=== PATIENT | male | born 1940 | race Caucasian/White ===

== ENCOUNTER → 2018-08-29 | Outpatient (CLI) | payer OTHER | END | disposition home or self-care (01) | LOC: CIMAGING 09:08 | PROVIDERS: ATTEND Internal Medicine | DX: R06.00 Dyspnea, unspecified (principal); R91.8 Other nonspecific abnormal finding of lung field; Z87.891 Personal history of nicotine dependence; I10 Essential (primary) hypertension; E78.2 Mixed hyperlipidemia; E04.1 Nontoxic single thyroid nodule; I25.10 Atherosclerotic heart disease of native coronary artery without angina pectoris | CPT/HCPCS: 71250-PO ==

== ENCOUNTER → 2018-09-06 | Outpatient (CLI) | payer OTHER | LOC: CIMAGING 10:09 | PROVIDERS: ATTEND Internal Medicine | DX: E04.1 Nontoxic single thyroid nodule (principal) | CPT/HCPCS: 76536-PO ==

== ENCOUNTER → 2018-09-13 | Outpatient (CLI) | payer OTHER ==
[~2018-09-13] MED LIST: LIDOCAINE 1% 300 MG/30 ML SDV ONE
== END ==
LOC: FIMAGING 10:25
PROVIDERS: ATTEND Internal Medicine
PROC: 0G9H3ZX Drainage of Right Thyroid Gland Lobe, Percutaneous Approach, Diagnostic (ICD-10-PCS; principal; 2018-09-13)
DX: E04.1 Nontoxic single thyroid nodule (principal)

== ENCOUNTER 2018-10-02 09:38 | Day surgery (SDC) | payer OTHER ==
[2018-10-02] MEDS ORDERED: FAMOTIDINE 20 MG TAB PO ONE (09:41)
[2018-10-02] MEDS ORDERED: diphenhydrAMINE 25 MG CAP PO ONE ×2 (09:41→09:58)
[2018-10-02] MEDS ORDERED: NS 1,000 ML IV ONE (09:41)
[2018-10-02] MEDS ORDERED: ASPIRIN EC 325 MG TAB PO ONE ×2 (09:41→09:58)
[2018-10-02] MEDS ORDERED: DIAZEPAM 5 MG TAB PO ONE (09:41)
[2018-10-02] MEDS ORDERED: FAMOTIDINE 20 MG TAB ONE (09:58)
[2018-10-02] MEDS ORDERED: DIAZEPAM 5 MG TAB ONE (09:59)
[2018-10-02 10:21] LABS: PLATELET COUNT 239 10^3/uL (150-400)
[2018-10-02 10:33] LABS: INR 0.99 (0.83-1.16); PROTIME(PATIENT) 13.3 SEC (12.0-15.0)
[2018-10-02] MEDS ORDERED: LIDOCAINE 1% 300 MG/30 ML SDV ONE (11:24)
[2018-10-02] MEDS ORDERED: MIDAZOLAM 2 MG/2 ML VIAL ONE (11:25)
[2018-10-02] MEDS ORDERED: VERAPAMIL 5 MG/2 ML VIAL ONE (11:25)
[2018-10-02] MEDS ORDERED: HEPARIN 10,000 UNIT/10 ML MDV (1,000 UNIT/ML) ONE (11:25)
[2018-10-02] MEDS ORDERED: fentaNYL 100 MCG/2 ML INJ ONE (11:25)
[2018-10-02] MEDS ORDERED: IOHEXOL 350mgI/ML (OMNIPAQUE) 150 ML BTL IV ONE (11:25)
[2018-10-02] MEDS ORDERED: MAGNESIUM SULF 1 GM/DEXTROSE 100 ML IV ONE (11:30)
--- NOTE | 2018-10-02 12:20 | PDDXCAT ---
Diagnostic Cath Note - . Date: 10/02/18 Train Clerk: Lance Indication: other (Symptoms of exertional dyspnea, [place] [employer] functional class 3 with an associated intermediate risk stress myocardial perfusion imaging study.) - Procedure Access: right wrist Procedure: left heart catheterization, coronary angiography, left ventriculogram - Materials Left Heart Cath size: 5F Left Heart Cath materials: JL3.5, JR4.0, pigtail - Findings-Left Heart Catheterization LM: Large caliber vessel. Appropriate bifurcation into the left anterior descending and circumflex distributions. Angiographically free of disease. LAD: Large caliber transapical vessel with a single diagonal. Luminal irregularities with no obstructive lesions. LCX: Moderate caliber vessel. 3 obtuse marginal branches. Luminal irregularities with no obstructive lesions. RCA: Dominant. The PDA and a small posterolateral cascade are identified. Luminal irregularities with no obstructive lesions. LVEF: 60%. Normal wall motion. Wall motion: Normal. Complications: None. Estimated blood loss: <50ml Closure method: TR Band Assessment: Angiographically near normal coronary arteries. Preserved left ventricular systolic function. Likely false-positive stress test. Dyspnea not explained by findings on this study. Plan: Patient will be assessed for alternate etiologies to his symptoms.
[2018-10-02] MEDS ORDERED: ONDANSETRON 4 MG/2 ML VIAL IVP PRN (12:21)
[2018-10-02] MEDS ORDERED: ATROPINE SULFATE 1 MG/10 ML SYR IVP PRN (12:21)
--- NOTE | 2018-10-02 15:52 | CPEKG ---
Test Reason : OPEN Blood Pressure : / mmHG Vent. Rate : 066 BPM Atrial Rate : 066 BPM P-R Int : 231 ms QRS Dur : 091 ms QT Int : 391 ms P-R-T Axes : 079 055 049 degrees QTc Int : 410 ms Sinus rhythm Prolonged OR interval Confirmed by Jose Roberto Russell ([id number]) on 10/02/2018 3:51:25 PM Referred By: Lucas Lucas Confirmed By:Jose Roberto Russell
== END 2018-10-02 15:40 | disposition home or self-care (01) ==
LOC: FCATH 09:38
PROVIDERS: ATTEND Internal Medicine Cardiovascular Disease
PROC: 4A023N7 Measurement of Cardiac Sampling and Pressure, Left Heart, Percutaneous Approach (ICD-10-PCS; principal; 2018-10-02)
PROC: B2151ZZ Fluoroscopy of Left Heart using Low Osmolar Contrast (ICD-10-PCS; principal; 2018-10-02)
PROC: B2111ZZ Fluoroscopy of Multiple Coronary Arteries using Low Osmolar Contrast (ICD-10-PCS; principal; 2018-10-02)
DX: R06.00 Dyspnea, unspecified (principal); J44.9 Chronic obstructive pulmonary disease, unspecified; I10 Essential (primary) hypertension; E78.2 Mixed hyperlipidemia; Z87.891 Personal history of nicotine dependence
CPT/HCPCS: 93005; 93458; C1769; J1644; J2250; J3010; J3475; Q9967